=== PATIENT | male | born 1990 | race Caucasian/White ===

== ENCOUNTER 2019-01-30 11:17 | Emergency (ER) | payer SELFPAY ==
[2019-01-30] MEDS ORDERED: Fluorescein Sodium TOPICAL* 1 MG TEST STRIP OPHTHALMIC ONE (11:59)
[2019-01-30] MEDS ORDERED: Tetracaine 0.5% OPTH.SOL 4 ML* 1 DROP BTL BOTH EYES ONE (12:00)
[2019-01-30] MEDS ORDERED: Tetracaine 0.5% OPTH.SOL 4 ML* 1 DROP BTL ONE (12:08)
[2019-01-30] MEDS ORDERED: HYDROcodone/ACETAMIN 5-325 MG* 1 TAB PO ONE (12:23)
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
[2019-01-30 12:46] VITALS: BP 118/76
== END 2019-01-30 12:38 | disposition home or self-care (01) ==
LOC: ED 11:17
DX: S05.91XA Unspecified injury of right eye and orbit, initial encounter (principal); H11.31 Conjunctival hemorrhage, right eye; W22.8XXA Striking against or struck by other objects, initial encounter; Y92.9 Unspecified place or not applicable; F17.200 Nicotine dependence, unspecified, uncomplicated
CPT/HCPCS: 99282; A9270-GY

== ENCOUNTER 2019-06-19 12:56 | Emergency (ER) | payer SELFPAY ==
[2019-06-19] MEDS ORDERED: NS 0.9% 1000 ML** 1,000 ML IV ONE (13:03)
[2019-06-19 13:12] VITALS: BP 117/82
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
[2019-06-19 14:01] LABS: Hematocrit 46 % (42-52); Hemoglobin 15.3 g/dL (14.0-18.0); Mean Corpuscular HGB Conc 34 g/dL (31-36); Mean Corpuscular Hemoglobin 30 pg (27-31); Mean Corpuscular Volume 90 fL (80-94); Red Blood Count 5.07 10^6 /uL (4.18-5.48); Red Cell Distribution Width 13 % (10-15); White Blood Count 10.4 10^3/uL (3.5-10.8)
[2019-06-19 14:22] LABS: BUN/Creatinine Ratio 9.4 (8-20); Calcium 9.6 mg/dL (8.6-10.3); EGFR African American 113.7 (>60); Potassium 4.1 mmol/L (3.5-5.0)
[2019-06-19 14:35] LABS: ABS Eosinophils 0.2 10^3/ul (0-0.6); ABS Lymphocytes 1.5 10^3/ul (1.0-4.8); ABS Monocytes 0.6 10^3/ul (0-0.8); Eosinophil % 1.8 %; Lymphocyte % 14.7 %; Platelet Count 235 10^3/uL (150-450)
== END 2019-06-19 13:54 | disposition left against medical advice (07) ==
LOC: ED 12:56
DX: Z53.29 Procedure and treatment not carried out because of patient's decision for other reasons (principal); R53.83 Other fatigue; E86.0 Dehydration; F12.10 Cannabis abuse, uncomplicated; F17.210 Nicotine dependence, cigarettes, uncomplicated; Z90.89 Acquired absence of other organs
CPT/HCPCS: 36415; 80048; 82550; 85025; 93005; 99282